=== PATIENT | female | born 1950 | race African-American/Black ===

== ENCOUNTER 2021-03-02 17:02 | Emergency (ER) | payer OTHER ==
[2021-03-02 17:15] VITALS: TEMP 98.3; BMI 20.1
[2021-03-02 19:06] LABS: BASO % 1.1 % (0-2.0); EOS % 1.2 % (0-4.5); HEMATOCRIT 46.6 % (32.4-45.2); HEMOGLOBIN 15.9 GM/dL (10.7-15.3); MCH 32.1 pg (25.7-33.7); MEAN CELL VOLUME 94.2 fl (80-96); MEAN PLT VOLUME 6.8 fl (7.5-11.1); NEUT % 58.7 % (42.8-82.8); PLATELET COUNT 277 10^3/uL (134-434); RBC 4.95 M/mm3 (3.60-5.2); RDW 15.8 % (11.6-15.6); WHITE BLOOD COUNT 3.8 K/mm3 (4.0-10.0)
[2021-03-02 19:13] LABS: INR 0.85 (0.83-1.09); PROTHROMBIN TIME (PATIENT) 10.5 SEC (9.7-13.0)
[2021-03-02 19:16] LABS: ACTIVATED PTT 29.4 SECONDS (25.2-36.5)
[2021-03-02 19:28] LABS: CALCIUM 8.2 mg/dL (8.5-10.1)
[2021-03-02 19:29] LABS: ALBUMIN 2.9 g/dl (3.4-5.0); BLOOD UREA NITROGEN 14.4 mg/dL (7-18)
[2021-03-02 19:32] LABS: CREATININE 0.9 mg/dL (0.55-1.3)
[2021-03-02 19:34] LABS: BILIRUBIN,TOTAL 0.9 mg/dL (0.2-1); TOT PROT 7.2 g/dl (6.4-8.2)
[2021-03-02 19:37] LABS: N-TERMINAL BNP 372.9 pg/ml (5-125)
[2021-03-02] MEDS ORDERED: FUROSEMIDE 40 MG/4 ML INJECTABLE VIAL IVPUSH ONE (19:49)
[2021-03-02] MEDS ORDERED: FUROSEMIDE 40 MG/4 ML INJECTABLE VIAL ONE (20:06)
[2021-03-02 20:18] VITALS: BP 145/79; PULSE 79
[2021-03-02 23:38] LABS: SARS COV-2 MOLECULAR Presumptive Positive (Negative)
[2021-03-04 13:06] LABS: SARS-CoV-2 NAA Not Detected (Not Detected)
== END 2021-03-02 21:03 ==
LOC: JER 17:02
PROC: 3E033GC Introduction of Other Therapeutic Substance into Peripheral Vein, Percutaneous Approach (ICD-10-PCS; principal; 2021-03-02)
DX: R60.0 Localized edema (principal)
CPT/HCPCS: 36415; 71046-TC-FY; 80053; 83880; 85025; 85610; 85730; 93005; 93010; 93970-TC; 99285-25; C9803; U0003; U0005

== ENCOUNTER 2021-03-02 20:59 | Inpatient (IN) | payer OTHER ==
[2021-03-02 13:25] VITALS: BMI 20.1
[2021-03-02] MEDS ORDERED: MAGNESIUM HYDROX 2400MG/30ML ORAL SUSPENSION 30 ML CUP PO PRN (23:26)
[2021-03-02] MEDS ORDERED: BISMUTH SUBSALICYLATE 524 MG/30 ML PO PRN (23:26)
[2021-03-02] MEDS ORDERED: ACETAMINOPHEN 325 MG TABLET (FP) PO PRN ×2 (23:26)
[2021-03-02] MEDS ORDERED: MAG HYDROX/AL HYDROX/SIMETH 30 ML UNIT-DOSE CUP PO PRN (23:26)
[2021-03-02] MEDS ORDERED: ONDANSETRON *ODT* 4 MG TABLET SL PRN (23:26)
[2021-03-02] MEDS ORDERED: MAGNESIUM CITRATE 300 ML BOTTLE PO PRN (23:26)
[2021-03-02] MEDS ORDERED: MENTHOL/PHENOL 1 EACH UD MM PRN (23:26)
[2021-03-02] MEDS ORDERED: IBUPROFEN 400 MG TABLET (FP) PO PRN (23:26)
[2021-03-02] MEDS ORDERED: cloNIDine HCL 0.1 MG TABLET PO PRN (23:31)
[2021-03-02] MEDS ORDERED: methaDONE HCL 10 MG TABLET (FOR DETOX USE ONLY) PO ONE (23:31)
[2021-03-02] MEDS ORDERED: LORazepam 1 MG TABLET PO PRN (23:31)
[2021-03-03] MEDS: LORazepam 1 MG TABLET PO SCH ×5 (00:58→22:26)
[2021-03-03] MEDS ORDERED: methaDONE HCL 10 MG TABLET (FOR DETOX USE ONLY) ONE (09:33)
[2021-03-03] MEDS: PRENATAL VITAMINS W/ FOLIC ACID TABLET (FP) PO SCH (10:56)
[2021-03-03] MEDS: NICOTINE 14 MG/24 HOURS TOPICAL PATCH TD SCH (10:56)
[2021-03-03] MEDS: ASPIRIN 81 MG CHEWABLE TABLETS PO SCH (11:07)
[2021-03-03] MEDS: amLODIPine BESYLATE 10 MG TABLET (FP) PO SCH (11:07)
[2021-03-03 13:59] LABS: HEMATOCRIT 42.2 % (32.4-45.2); HEMOGLOBIN 14.1 GM/dL (10.7-15.3); MCH 32.1 pg (25.7-33.7); MCHC 33.4 g/dl (32.0-36.0); MEAN CELL VOLUME 96.3 fl (80-96); MEAN PLT VOLUME 7.1 fl (7.5-11.1); PLATELET COUNT 249 10^3/uL (134-434); RBC 4.38 M/mm3 (3.60-5.2); RDW 16.1 % (11.6-15.6); WHITE BLOOD COUNT 3.1 K/mm3 (4.0-10.0)
[2021-03-03 14:27] LABS: ALBUMIN 2.3 g/dl (3.4-5.0); CALCIUM 7.9 mg/dL (8.5-10.1)
[2021-03-03 14:31] LABS: CREATININE 0.7 mg/dL (0.55-1.3)
[2021-03-03 14:32] LABS: BILIRUBIN,TOTAL 1.2 mg/dL (0.2-1); BLOOD UREA NITROGEN 11.2 mg/dL (7-18); TOT PROT 5.8 g/dl (6.4-8.2)
[2021-03-03] MEDS: MELATONIN 5 MG TABLETS PO SCH (22:26)
[2021-03-03] MEDS: THIAMINE HCL 100 MG TABLET (FP) PO SCH (22:26)
[2021-03-04] MEDS: LORazepam 1 MG TABLET PO SCH ×4 (06:24→22:58)
[2021-03-04] MEDS ORDERED: methaDONE HCL 10 MG TABLET (FOR DETOX USE ONLY) PO ONE (10:00)
[2021-03-04] MEDS: PRENATAL VITAMINS W/ FOLIC ACID TABLET (FP) PO SCH (10:22)
[2021-03-04] MEDS: ASPIRIN 81 MG CHEWABLE TABLETS PO SCH (10:22)
[2021-03-04] MEDS: amLODIPine BESYLATE 10 MG TABLET (FP) PO SCH ×2 (10:22→14:06)
[2021-03-04] MEDS: NICOTINE 14 MG/24 HOURS TOPICAL PATCH TD SCH (10:23)
[2021-03-04] MEDS: ALBUTEROL SO4 HFA INHALER IH PRN (20:05)
[2021-03-04] MEDS: THIAMINE HCL 100 MG TABLET (FP) PO SCH (22:58)
[2021-03-04] MEDS: MELATONIN 5 MG TABLETS PO SCH (22:59)
[2021-03-05] MEDS ORDERED: LORazepam 0.5 MG TABLET PO PRN
[2021-03-05] MEDS: LORazepam 0.5 MG TABLET PO SCH ×4 (07:01→22:29)
[2021-03-05] MEDS ORDERED: methaDONE HCL 10 MG TABLET (FOR DETOX USE ONLY) ONE (08:42)
[2021-03-05] MEDS: PRENATAL VITAMINS W/ FOLIC ACID TABLET (FP) PO SCH (10:16)
[2021-03-05] MEDS: ASPIRIN 81 MG CHEWABLE TABLETS PO SCH (10:16)
[2021-03-05] MEDS: amLODIPine BESYLATE 10 MG TABLET (FP) PO SCH (10:16)
[2021-03-05] MEDS: ALBUTEROL SO4 HFA INHALER IH PRN ×2 (10:18→17:50)
[2021-03-05] MEDS: NICOTINE 14 MG/24 HOURS TOPICAL PATCH TD SCH (10:18)
[2021-03-05] MEDS: METHOCARBAMOL 500 MG TABLET PO PRN (22:28)
[2021-03-05] MEDS: MELATONIN 5 MG TABLETS PO SCH (22:28)
[2021-03-05] MEDS: THIAMINE HCL 100 MG TABLET (FP) PO SCH (22:28)
[2021-03-06] MEDS ORDERED: LORazepam 0.5 MG TABLET PO ONE (05:00)
[2021-03-06] MEDS: ASPIRIN 81 MG CHEWABLE TABLETS PO SCH (09:51)
[2021-03-06] MEDS: amLODIPine BESYLATE 10 MG TABLET (FP) PO SCH (09:52)
[2021-03-06] MEDS: PRENATAL VITAMINS W/ FOLIC ACID TABLET (FP) PO SCH (09:52)
[2021-03-06] MEDS: NICOTINE 14 MG/24 HOURS TOPICAL PATCH TD SCH (09:53)
[2021-03-06] MEDS ORDERED: methaDONE HCL 10 MG TABLET (FOR DETOX USE ONLY) PO ONE (10:00)
[2021-03-06] MEDS: ALBUTEROL SO4 HFA INHALER IH PRN (22:24)
[2021-03-06] MEDS: THIAMINE HCL 100 MG TABLET (FP) PO SCH (22:25)
[2021-03-06] MEDS: MELATONIN 5 MG TABLETS PO SCH (22:25)
[2021-03-06] MEDS: METHOCARBAMOL 500 MG TABLET PO PRN (22:26)
[2021-03-07 09:12] VITALS: BP 126/67; PULSE 73; TEMP 96.9
== END 2021-03-07 09:32 | disposition home or self-care (01) | DRG 897 ==
LOC: YASAS 20:59 → Y3N 22:21
PROVIDERS: ADMIT Allergy & Immunology; ATTEND Allergy & Immunology
PROC: HZ2ZZZZ Detoxification Services for Substance Abuse Treatment (ICD-10-PCS; principal; 2021-03-02)
DX: F11.23 Opioid dependence with withdrawal (principal); F10.230 Alcohol dependence with withdrawal, uncomplicated; F12.20 Cannabis dependence, uncomplicated; F17.210 Nicotine dependence, cigarettes, uncomplicated; F31.9 Bipolar disorder, unspecified; F41.9 Anxiety disorder, unspecified; G40.909 Epilepsy, unspecified, not intractable, without status epilepticus; I10 Essential (primary) hypertension; E78.5 Hyperlipidemia, unspecified; J44.9 Chronic obstructive pulmonary disease, unspecified; J40 Bronchitis, not specified as acute or chronic; L89.151 Pressure ulcer of sacral region, stage 1; R60.9 Edema, unspecified; M06.9 Rheumatoid arthritis, unspecified; H54.413A Blindness right eye category 3, normal vision left eye; I69.898 Other sequelae of other cerebrovascular disease; Z99.89 Dependence on other enabling machines and devices; Z88.8 Allergy status to other drugs, medicaments and biological substances; Z56.0 Unemployment, unspecified
CPT/HCPCS: 36415; 80053; 85027; 86780; C9803; U0003; U0005